=== PATIENT | male | born 2005 | race Two or more races ===

== ENCOUNTER 2023-05-02 22:20 | Emergency (ER) | payer OTHER ==
[~2023-05-02] VITALS: Ht 177.8 cm; Wt 85.9 kg
[2023-05-02 22:28] VITALS: TEMP 98.2
[2023-05-03 01:00] VITALS: BP 127/65; PULSE 74; RESP 16
== END 2023-05-03 01:06 | disposition home or self-care (01) ==
LOC: EMS 22:24
DX: F41.9 Anxiety disorder, unspecified (principal); F17.210 Nicotine dependence, cigarettes, uncomplicated; Z98.890 Other specified postprocedural states
CPT/HCPCS: 99281; Z7502